=== PATIENT | male | born 1995 | race Caucasian/White ===

== ENCOUNTER → 2018-05-21 | Outpatient (CLI) | payer OTHER ==
[~2018-05-21] MED LIST: DIAZ-308 PO; NO HOME MED; ONDA-2 PO
--- NOTE | 2018-05-21 15:52 | RADIOLOGY IMAGING REPORT ---
FACILITY: [facility] - [place] PATIENT NAME: Toby Diaz : 1995 MR: [id number] V: [id number] EXAM DATE: ORDERING PHYSICIAN: PATRICIA WOOD TECHNOLOGIST: Location: [facility] [place] Patient: Toby Diaz : 1995 Visit/Account:[id number] Date of Sevice: 05/21/2018 ABD SINGLE ORGAN/QUAD/FOLLOWUP HISTORY: Umbilical pain COMPARISON: None. FINDINGS: Numerous sonographic images were obtained in the periumbilical region both with and without a Valsalv a maneuver. There is no demonstration of an umbilical hernia umbilical mass or abnormal fluid collec tion IMPRESSION: No sonographic abnormality in the periumbilical region was demonstrated Report Dictated By: Emilia Frye MD at 05/21/2018 3:36 PM Report E-Signed By: Emilia Frye MD at 05/21/2018 3:48 PM [id number]
--- NOTE | 2018-05-21 16:31 | RADIOLOGY IMAGING REPORT ---
FACILITY: [facility] PATIENT NAME: Toby Diaz : 1995 MR: [id number] V: [id number] EXAM DATE: ORDERING PHYSICIAN: PATRICIA WOOD TECHNOLOGIST: Location: [facility] - [place] Patient: Toby Diaz : 1995 Visit/Account:[id number] Date of Sevice: 05/21/2018 EXAMINATION: Focused right upper quadrant ultrasound COMPARISON: None HISTORY: Periumbilical pain. Findings: Standard right upper quadrant abdominal ultrasound is performed. Pancreas: Visualized body is unremarkable. The majority of the head and tail are obscured. Liver and portal vein: Heterogeneous and echogenic hepatic parenchyma. Main portal vein is patent. Gallbladder and biliary system: No gallbladder stone or sludge. No wall thickening, pericholecystic f luid, or sonographic Dinh sign. The majority of the common bile duct is obscured although the visua lized portion is within normal limits. Visualized aorta and IVC: Negative. Kidneys: The right kidney measures 9.4 x 5.3 x 5.3 cm . No renal mass, stone, or hydronephrosis. Ascites: None. IMPRESSION: 1. No sonographic findings of acute disease in the abdomen right upper quadrant. 2. Heterogeneously echogenic liver suggestive of hepatic steatosis. Report Dictated By: Ry Santos MD at 05/21/2018 4:25 PM Report E-Signed By: Ry Santos MD at 05/21/2018 4:29 PM [id number]
== END ==
LOC: US 07:06
PROVIDERS: ATTEND Physician Assistant Medical
DX: K76.0 Fatty (change of) liver, not elsewhere classified (principal)
CPT/HCPCS: 76705